=== PATIENT | male | born 1990 | race Caucasian/White ===

== ENCOUNTER 2019-04-10 17:26 | Emergency (ER) | payer BC ==
[~2019-04-10] VITALS: Ht 175.3 cm; Wt 117.9 kg
[2019-04-10 17:43] LABS: BASOPHILS % (AUTO) 0 % (0-10); EOSINOPHILS # (AUTO) 0.1 10^3/uL (0.0-0.3); EOSINOPHILS % (AUTO) 1 % (0-10); HEMATOCRIT 44 % (40-54); HEMOGLOBIN 15.8 G/DL (13.3-17.7); LYMPHOCYTES # (AUTO) 2.7 X 10^3 (1.0-4.0); LYMPHOCYTES % (AUTO) 26 % (12-44); MEAN CORPUSCULAR HEMOGLOBIN 32 PG (25-34); MEAN CORPUSCULAR HGB CONC 36 G/DL (32-36); MEAN CORPUSCULAR VOLUME 88 FL (80-99); MEAN PLATELET VOLUME 8.9 FL (7.4-10.4); MONOCYTES % (AUTO) 9 % (0-12); NEUTROPHILS # (AUTO) 6.7 X 10^3 (1.8-7.8); NEUTROPHILS % (AUTO) 63 % (42-75); PLATELET COUNT 283 10^3/uL (130-400); RED CELL DISTRIBUTION WIDTH 11.5 % (10.0-14.5); WHITE BLOOD COUNT 10.6 10^3/uL (4.3-11.0)
[2019-04-10 17:59] LABS: PROTHROMBIN TIME PATIENT 13.8 SEC (12.2-14.7)
--- NOTE | 2019-04-10 18:01 | Diagnostic Imaging Report ---
INDICATION: Chest pain COMPARISON: None. FINDINGS: Single view of the chest demonstrates clear lungs bilaterally. The heart is normal. There is no pneumothorax. The osseous structures are normal. IMPRESSION: Negative chest. Dictated by: Dictated on workstation # [id number]
[2019-04-10 18:10] LABS: ALANINE AMINOTRANSFERASE 24 U/L (0-55); ALBUMIN 4.6 GM/DL (3.2-4.5); ALKALINE PHOSPHATASE 75 U/L (40-136); BILIRUBIN,TOTAL 0.9 MG/DL (0.1-1.0); BUN/CREATININE RATIO 11; CALCIUM 9.4 MG/DL (8.5-10.1); CARBON DIOXIDE 27 MMOL/L (21-32); CHLORIDE 101 MMOL/L (98-107); CREATININE SERUM 0.98 MG/DL (0.60-1.30); GFR ESTIMATED > 60; GLUCOSE 95 MG/DL (70-105); MAGNESIUM 1.5 MG/DL (1.6-2.4); POTASSIUM 3.8 MMOL/L (3.6-5.0); SODIUM 138 MMOL/L (135-145); TOTAL PROTEIN 8.1 GM/DL (6.4-8.2)
--- NOTE | 2019-04-10 18:18 | ED Chest Pain ---
General Chief Complaint: Chest Wall Stated Complaint: CHEST PAIN,SOB Nursing Triage Note: WOKE UP THIS MORNING HAVING CHEST PAIN AND FELT LIKE HE COULD NOT CATCH HIS BREATH, PRESENTS TO ED WITH MID BACK PAIN, SOB AND CHEST PAIN HAVE RESOLVED Nursing Sepsis Screen: No Definite Risk Source: patient Exam Limitations: no limitations History of Present Illness Date Seen by Provider: Apr 10, 2019 Time Seen by Provider: 18:16 Initial Comments To ER by private vehicle with reports of epigastric abdominal pain and some right-sided chest pain this morning upon awakening. He did feel short of breath. The epigastric pain radiates through to his back. No history of this. He did have exposure to an herbicide last week, came in contact with his skin but he immediately washed it off and then went home and took a shower. He is concerned this may have some relationship to his symptoms. Also states that he changed tires on a semi-this past weekend which may account for his right-sided chest wall pain. Timing/Duration: 1-2 days Severity/Quality: moderate Radiation: no radiation Activities at Onset: none ASA po GRINDING AND SPRAYING SUPERVISOR: No NTG SL GRINDING AND SPRAYING SUPERVISOR: No Allergies and Home Medications Allergies Coded Allergies: No Known Drug Allergies (Unverified , 04/10/19) Patient Home Medication List Home Medication List Reviewed: Yes Review of Systems Review of Systems Constitutional: see HPI EENTM: No Symptoms Reported Respiratory: No Symptoms Reported Cardiovascular: No Symptoms Reported Gastrointestinal: See HPI, Abdominal Pain Genitourinary: No Symptoms Reported Musculoskeletal: no symptoms reported Skin: no symptoms reported Psychiatric/Neurological: No Symptoms Reported Endocrine: No Symptoms Reported Hematologic/Lymphatic: No Symptoms Reported Past Ojhxoor-Wmvoqd-Atkewr Hx Patient Social History Alcohol Use: Regular Use Alcohol Beverage of Choice: Beer Recreational Drug Use: No Type Used: Smokeless Tobacco Recent Foreign Travel: No Contact w/Someone Who Travel: No Recent Infectious Disease Expo: No Physical Abuse: No Sexual Abuse: No Mistreated: No Fear: No Physical Exam Vital Signs Vital Signs - First Documented 04/10/19 04/10/19 17:33 17:38 Temp 99.3 Pulse 91 Resp 18 B/P (MAP) 162/81 (108) Pulse Ox 99 O2 Delivery Room Air Capillary Refill : Less Than 3 Seconds Height, Weight, BMI Height: 5'9.00" Weight: 260lbs. oz. 117.795186sx; BMI Method:Stated General Appearance: No Apparent Distress, WD/WN Respiratory: No Accessory Muscle Use, No Respiratory Distress Cardiovascular: Regular Rate, Rhythm, Normal Peripheral Pulses Gastrointestinal: Normal Bowel Sounds, Non Tender, Soft Extremity: Normal Capillary Refill, No Calf Tenderness Neurologic/Psychiatric: Alert, Oriented x3 Skin: Normal Color, Warm/Dry Progress/Results/Core Measures Results/Orders Lab Results Laboratory Tests Test 04/10/19 17:24 04/10/19 17:34 Range/Units D-Dimer 0.29 0.00-0.49 UG/ML White Blood Count 10.6 4.3-11.0 10^3/uL Red Blood Count 5.00 4.35-5.85 10^6/uL Hemoglobin 15.8 13.3-17.7 G/DL Hematocrit 44 40-54 % Mean Corpuscular Volume 88 80-99 FL Mean Corpuscular Hemoglobin 32 25-34 PG Mean Corpuscular Hemoglobin Concent 36 32-36 G/DL Red Cell Distribution Width 11.5 10.0-14.5 % Platelet Count 283 130-400 10^3/uL Mean Platelet Volume 8.9 7.4-10.4 FL Neutrophils (%) (Auto) 63 42-75 % Lymphocytes (%) (Auto) 26 12-44 % Monocytes (%) (Auto) 9 0-12 % Eosinophils (%) (Auto) 1 0-10 % Basophils (%) (Auto) 0 0-10 % Neutrophils # (Auto) 6.7 1.8-7.8 X 10^3 Lymphocytes # (Auto) 2.7 1.0-4.0 X 10^3 Monocytes # (Auto) 1.0 0.0-1.0 X 10^3 Eosinophils # (Auto) 0.1 0.0-0.3 10^3/uL Basophils # (Auto) 0.0 0.0-0.1 10^3/uL Prothrombin Time 13.8 12.2-14.7 SEC INR Comment 1.0 0.8-1.4 Activated Partial Thromboplast Time 26 24-35 SEC Sodium Level 138 135-145 MMOL/L Potassium Level 3.8 3.6-5.0 MMOL/L Chloride Level 101 98-107 MMOL/L Carbon Dioxide Level 27 21-32 MMOL/L Anion Gap 10 5-14 MMOL/L Blood Urea Nitrogen 11 7-18 MG/DL Creatinine 0.98 0.60-1.30 MG/DL Estimat Glomerular Filtration Rate > 60 BUN/Creatinine Ratio 11 Glucose Level 95 70-105 MG/DL Calcium Level 9.4 8.5-10.1 MG/DL Corrected Calcium 8.5-10.1 MG/DL Magnesium Level 1.5 L 1.6-2.4 MG/DL Total Bilirubin 0.9 0.1-1.0 MG/DL Aspartate Amino Transf (AST/SGOT) 22 5-34 U/L Alanine Aminotransferase (ALT/SGPT) 24 0-55 U/L Alkaline Phosphatase 75 40-136 U/L Myoglobin 34.1 10.0-92.0 NG/ML Troponin I < 0.028 <0.028 NG/ML Total Protein 8.1 6.4-8.2 GM/DL Albumin 4.6 H 3.2-4.5 GM/DL Lipase 18 8-78 U/L My Orders Orders - JENNIFER VERA [employer]CH[employer]IC Cbc With Automated Diff (04/10/19 17:35) Magnesium (04/10/19 17:35) Chest 1 View, Ap/Pa Only (04/10/19 17:35) Ekg Tracing (04/10/19 17:35) Cardiac Profile 1 (04/10/19 17:35) Comprehensive Metabolic Panel (04/10/19 17:35) Myoglobin Serum (04/10/19 17:35) Protime With Inr (04/10/19 17:35) Partial Thromboplastin Time (04/10/19 17:35) O2 (04/10/19 17:35) Monitor-Rhythm Ecg Trace Only (04/10/19 17:35) Lipid Panel (04/11/19 06:00) Ed Iv/Invasive Line Start (04/10/19 17:35) Lipase (04/10/19 17:43) Antacid Suspension (Mylanta Suspension (04/10/19 18:30) Lidocaine 2% Viscous 15 Ml (Xylocaine Vi (04/10/19 18:30) Fibrin Degradation Products (04/10/19 18:18) Medications Given in ED Current Medications Medications Dose Ordered Sig/Shun Route Start Time Stop Time Status Last Admin Dose Admin Al Hydrox/Mg Hydrox/Simethicone 30 ml ONCE ONCE PO 04/10/19 18:30 04/10/19 18:31 DC 04/10/19 18:32 30 ML Lidocaine HCl 15 ml ONCE ONCE PO 04/10/19 18:30 04/10/19 18:31 DC 04/10/19 18:32 15 ML Vital Signs/I&O 04/10/19 04/10/19 17:33 17:38 Temp 99.3 Pulse 91 Resp 18 B/P (MAP) 162/81 (108) Pulse Ox 99 O2 Delivery Room Air Blood Pressure Mean: 108 Departure Impression Primary Impression: Epigastric pain Disposition: HOME, SELF-CARE Condition: Stable Departure-Patient Inst. Decision time for Depature: 18:50 Referrals: NO,LOCAL PHYSICIAN (PCP) Primary Care Physician RAULITO ROSE (Family) Primary Care Physician Patient Instructions: Chest Pain (DC) Add. Discharge Instructions: 1. Call your Dr. your doctor tomorrow to make an appointment for follow-up 2. Return to ER for any worsening. JENNIFER VERA APRN Apr 10, 2019 18:18
[2019-04-10] MEDS ORDERED: ANTACID SUSP 30 ML UDC (MYLANTA) PO ONE (18:30)
[2019-04-10] MEDS ORDERED: LIDOCAINE 2% VISCOUS 15 ML UDC PO ONE (18:30)
[2019-04-10 19:02] VITALS: BP 162/81
== END 2019-04-10 19:01 | disposition home or self-care (01) ==
LOC: EDUNIT# 17:26 → ER 17:27
DX: R10.13 Epigastric pain (principal)
CPT/HCPCS: 36415; 71045; 80053; 83690; 83735; 83874; 84484; 85025; 85379; 85610; 85730; 93005; 93041

== ENCOUNTER 2019-10-16 23:11 | Emergency (ER) | payer BC ==
[~2019-10-16] VITALS: Ht 175 cm; Wt 108.0 kg
[2019-10-16] MEDS ORDERED: ASPIRIN 81 MG CHEW (CHILDREN'S ASA) ONE (23:33)
--- NOTE | 2019-10-17 00:25 | NUR ---
pt reports wanting to go home d/t sick child. erp in talking with patient.
[2019-10-17 00:37] VITALS: BP 120/64
[2019-10-17 02:09] LABS: ALANINE AMINOTRANSFERASE 39 U/L (0-55); ALBUMIN 4.7 GM/DL (3.2-4.5); ALKALINE PHOSPHATASE 72 U/L (40-136); BILIRUBIN,TOTAL 0.6 MG/DL (0.1-1.0); BUN/CREATININE RATIO 13; CALCIUM 9.4 MG/DL (8.5-10.1); CARBON DIOXIDE 25 MMOL/L (21-32); CHLORIDE 102 MMOL/L (98-107); CREATININE SERUM 1.15 MG/DL (0.60-1.30); GFR ESTIMATED > 60; GLUCOSE 109 MG/DL (70-105); MAGNESIUM 1.7 MG/DL (1.6-2.4); POTASSIUM 3.4 MMOL/L (3.6-5.0); SODIUM 138 MMOL/L (135-145); TOTAL PROTEIN 7.6 GM/DL (6.4-8.2)
[2019-10-17 02:10] LABS: MEAN CORPUSCULAR HEMOGLOBIN 31 PG (25-34); WHITE BLOOD COUNT 11.5 10^3/uL (4.3-11.0)
[2019-10-17 02:11] LABS: BASOPHILS % (AUTO) 0 % (0-10); EOSINOPHILS # (AUTO) 0.1 10^3/uL (0.0-0.3); EOSINOPHILS % (AUTO) 1 % (0-10); HEMATOCRIT 43 % (40-54); LYMPHOCYTES # (AUTO) 2.2 X 10^3 (1.0-4.0); LYMPHOCYTES % (AUTO) 19 % (12-44); MEAN CORPUSCULAR HGB CONC 35 G/DL (32-36); MEAN CORPUSCULAR VOLUME 87 FL (80-99); MEAN PLATELET VOLUME 9.5 FL (7.4-10.4); MONOCYTES # (AUTO) 0.9 X 10^3 (0.0-1.0); MONOCYTES % (AUTO) 8 % (0-12); NEUTROPHILS # (AUTO) 8.3 X 10^3 (1.8-7.8); NEUTROPHILS % (AUTO) 72 % (42-75); PLATELET COUNT 248 10^3/uL (130-400); RED CELL DISTRIBUTION WIDTH 11.6 % (10.0-14.5)
[2019-10-17] MEDS ORDERED: ASPIRIN 81 MG CHEW (CHILDREN'S ASA) PO ONE (02:15)
--- NOTE | 2019-10-17 04:17 | ED Cardiac General ---
History of Present Illness General Chief Complaint: Cardiac/General Problems Stated Complaint: PALPITATIONS Nursing Triage Note: c/o palpatations when laying down. denies pain. reports missed buspar dose today. Source: patient Exam Limitations: no limitations History of Present Illness Date Seen by Provider: Oct 16, 2019 Time Seen by Provider: 23:20 Initial Comments This 29-year-old gentleman presents to the emergency room with primary complaint of palpitations and chest discomfort. He has also had some cough when lying down. Symptoms started around 21:30. He reports quitting drinking about 45 days ago and having feelings of anxiousness since then. He has been taking bryan nopril, BuSpar, and trazodone. He missed his 17:00 BuSpar dose tonight which may be impacting his symptoms. He denies any smoking. His primary care provider is Leigh Ann Rose. He reports symptoms are already improving without any particular treatment. Allergies and Home Medications Allergies Coded Allergies: No Known Drug Allergies (Unverified , 04/10/19) Patient Home Medication List Home Medication List Reviewed: Yes Review of Systems Review of Systems Constitutional: no symptoms reported EENTM: No Symptoms Reported Respiratory: See HPI Cardiovascular: See HPI Gastrointestinal: No Symptoms Reported Genitourinary: No Symptoms Reported Musculoskeletal: no symptoms reported Skin: no symptoms reported Psychiatric/Neurological: No Symptoms Reported Endocrine: No Symptoms Reported Hematologic/Lymphatic: No Symptoms Reported Past Wcbvhtv-Fpddcj-Akojdv Hx Past Med/Social Hx: Reviewed Nursing Past Med/Soc Hx Patient Social History Alcohol Use: Past History Number of Drinks Today: AA Alcohol Beverage of Choice: Beer Recreational Drug Use: No Smoking Status: Never a Smoker Type Used: Smokeless Tobacco 2nd Hand Smoke Exposure: No Recent Foreign Travel: No Contact w/Someone Who Travel: No Recent Infectious Disease Expo: No Recent Hopitalizations: No Physical Abuse: No Sexual Abuse: No Mistreated: No Fear: No Immunizations Up To Date Tetanus Booster (TDap): Unknown Seasonal Allergies Seasonal Allergies: No Past Medical History Surgeries: No Respiratory: No Cardiac: Yes Hypertension Neurological: No Genitourinary: No Gastrointestinal: No Musculoskeletal: No Endocrine: No HEENT: No Cancer: No Psychosocial: Yes Anxiety, Depression Integumentary: No Blood Disorders: No Physical Exam Vital Signs Vital Signs - First Documented 10/16/19 23:20 Temp 37.1 Pulse 84 Resp 18 B/P (MAP) 125/101 (109) Pulse Ox 99 O2 Delivery Room Air Capillary Refill : Less Than 3 Seconds Height, Weight, BMI Height: 5'9.00" Weight: 260lbs. oz. 117.352712bz; 35.00 BMI Method:Stated General Appearance: No Apparent Distress, WD/WN, Obese HEENT: PERRL/EOMI, Normal ENT Inspection Neck: Normal Inspection Respiratory: Chest Non Tender, Lungs Clear, Normal Breath Sounds, No Accessory Muscle Use, No Respiratory Distress Cardiovascular: Regular Rate, Rhythm, No Edema, No Murmur, Normal Peripheral Pulses Gastrointestinal: Normal Bowel Sounds, Non Tender, Soft Extremity: Normal Inspection, No Pedal Edema Neurologic/Psychiatric: Alert, Oriented x3, No Motor/Sensory Deficits, Normal Mood/Affect, equipment or machinery cleaner II-XII Norm as Tested Skin: Normal Color, Warm/Dry Progress/Results/Core Measures Results/Orders Lab Results Laboratory Tests Test 10/16/19 23:30 Range/Units White Blood Count 11.5 H 4.3-11.0 10^3/uL Red Blood Count 4.91 4.35-5.85 10^6/uL Hemoglobin 15.0 13.3-17.7 G/DL Hematocrit 43 40-54 % Mean Corpuscular Volume 87 80-99 FL Mean Corpuscular Hemoglobin 31 25-34 PG Mean Corpuscular Hemoglobin Concent 35 32-36 G/DL Red Cell Distribution Width 11.6 10.0-14.5 % Platelet Count 248 130-400 10^3/uL Mean Platelet Volume 9.5 7.4-10.4 FL Neutrophils (%) (Auto) 72 42-75 % Lymphocytes (%) (Auto) 19 12-44 % Monocytes (%) (Auto) 8 0-12 % Eosinophils (%) (Auto) 1 0-10 % Basophils (%) (Auto) 0 0-10 % Neutrophils # (Auto) 8.3 H 1.8-7.8 X 10^3 Lymphocytes # (Auto) 2.2 1.0-4.0 X 10^3 Monocytes # (Auto) 0.9 0.0-1.0 X 10^3 Eosinophils # (Auto) 0.1 0.0-0.3 10^3/uL Basophils # (Auto) 0.0 0.0-0.1 10^3/uL Sodium Level 138 135-145 MMOL/L Potassium Level 3.4 L 3.6-5.0 MMOL/L Chloride Level 102 98-107 MMOL/L Carbon Dioxide Level 25 21-32 MMOL/L Anion Gap 11 5-14 MMOL/L Blood Urea Nitrogen 15 7-18 MG/DL Creatinine 1.15 0.60-1.30 MG/DL Estimat Glomerular Filtration Rate > 60 BUN/Creatinine Ratio 13 Glucose Level 109 H 70-105 MG/DL Calcium Level 9.4 8.5-10.1 MG/DL Corrected Calcium 8.5-10.1 MG/DL Magnesium Level 1.7 1.6-2.4 MG/DL Total Bilirubin 0.6 0.1-1.0 MG/DL Aspartate Amino Transf (AST/SGOT) 23 5-34 U/L Alanine Aminotransferase (ALT/SGPT) 39 0-55 U/L Alkaline Phosphatase 72 40-136 U/L Myoglobin 34.2 10.0-92.0 NG/ML Troponin I < 0.028 <0.028 NG/ML Total Protein 7.6 6.4-8.2 GM/DL Albumin 4.7 H 3.2-4.5 GM/DL My Orders Orders - LUIS MARES MD Chest 1 View, Ap/Pa Only (10/16/19 ) Cbc With Automated Diff (10/16/19 23:30) Comprehensive Metabolic Panel (10/16/19 23:30) Magnesium (10/16/19 23:30) Myoglobin Serum (10/16/19 23:30) Troponin I (10/16/19 23:30) Aspirin Chewable Tablet (Baby Aspirin Ch (10/17/19 02:15) Continuous Ekg Monitoring (10/17/19 02:13) Ekg Tracing (10/17/19 02:13) Ed Iv/Invasive Line Start (10/17/19 02:16) Medications Given in ED Current Medications Medications Dose Ordered Sig/Shun Route Start Time Stop Time Status Last Admin Dose Admin Aspirin 324 mg ONCE ONCE PO 10/17/19 02:15 10/17/19 02:16 DC 10/16/19 23:39 324 MG Vital Signs/I&O 10/16/19 10/17/19 23:20 00:37 Temp 37.1 37.0 Pulse 84 66 Resp 18 20 B/P (MAP) 125/101 (109) 120/64 (109) Pulse Ox 99 99 O2 Delivery Room Air Room Air Blood Pressure Mean: 109 Progress Progress Note : Progress Note Initial workup was unremarkable and patient was feeling asymptomatic. A repeat troponin at 2 hours was ordered but patient declines as he has very unlikely to have coronary artery disease and he has filled children at home he needs to get to. He will follow-up in the clinic for further evaluation. Symptoms are possibly related to abstinence from alcohol unmasking underlying anxiety, especially since he did not take his evening dose of BuSpar. Initial ECG Impression Date: Oct 16, 2019 Initial ECG Impression Time: 23:25 Initial ECG Rate: 88 Initial ECG Rhythm: Normal Sinus Initial ECG Intervals: Normal Initial ECG Impression: Normal Comment Normal sinus rhythm with no ST elevation or depression. No abnormal intervals or axis deviation. Diagnostic Imaging Diagonstic Imaging: Xray Plain Films/CT/US/NM/MRI: chest Comments Chest x-ray viewed by me. Report not yet available. No acute abnormalities appreciated. Departure Impression Primary Impression: Palpitations Disposition: 01 HOME, SELF-CARE Condition: Improved Departure-Patient Inst. Decision time for Depature: 00:30 Referrals: RAULITO ROSE (Family) Primary Care Physician NO,LOCAL PHYSICIAN (PCP) Primary Care Physician LUIS MARES MD Oct 17, 2019 04:16
--- NOTE | 2019-10-17 06:54 | Diagnostic Imaging Report ---
INDICATION: Chest pain. COMPARISON: 04/10/2019. TECHNIQUE: Single radiograph of the chest dated 10/16/2019. FINDINGS: The cardiac silhouette and pulmonary vasculature are within normal limits. The lungs are clear. No pleural effusion. No pneumothorax. No acute osseous abnormality. IMPRESSION: Stable examination without acute cardiopulmonary abnormality. Dictated by: Dictated on workstation # [id number]
== END 2019-10-17 00:37 | disposition home or self-care (01) ==
LOC: ER 23:11 → EDUNIT# 23:11 → ER 10-17 00:37
DX: R00.2 Palpitations (principal)
CPT/HCPCS: 36415; 71045; 80053; 83735; 83874; 84484; 85025; 93005; 93041